=== PATIENT | male | born 1990 | race African-American/Black ===

== ENCOUNTER 2018-08-18 06:21 | Emergency (ER) | payer SELFPAY ==
--- NOTE | 2018-08-18 07:35 | PDOC ---
History of Present Illness - General Stated Complaint: BACK PAIN Time Seen by Provider: 08/18/18 07:30 History Source: Patient - History of Present Illness Timing/Duration: other Associated Symptoms: denies: fever/chills, nausea/vomiting Past History - Past Medical History Allergies/Adverse Reactions: Allergies Allergy/AdvReac Type Severity Reaction Status Date / Time No Known Allergies Allergy Verified 08/18/18 07:30 Home Medications: Ambulatory Orders NK [No Known Home Medication] 08/18/18 Review of Systems - Review of Systems Constitutional: No: Chills, Fever ABD/GI: No: Nausea, Vomiting, Abdominal cramping : No: Burning, Hematuria Musculoskeletal: Yes: Back Pain Integumentary: Yes: Rash. No: Pruritus Neurological: No: Numbness, Tingling, Weakness *Physical Exam - Physical Exam General Appearance: Yes: Appropriately Dressed. No: Apparent Distress HEENT: positive: Normal Voice Neck: positive: Supple Gastrointestinal/Abdominal: positive: Soft. negative: Tender Musculoskeletal: negative: CVA Tenderness, Vertebral Tenderness Extremity: positive: Normal Inspection Integumentary: positive: Dry, Warm, Rash (1x1 cm induration to r axilla, no fluctuance/erythema) Neurologic: positive: Fully Oriented, Alert, Normal Mood/Affect Medical Decision Making - Medical Decision Making 08/18/18 07:30 28 yo M, no sig hx, here w/ multiple complaints. Pt states for the past several months has been getting "pimples" mostly to upper extremity b/l. Currently has a lesion under his R axilla. No prior medical evaluation. Also reports intermittent lower back pain x 3 months. States he started going to the gym ~4 months ago. No pain currently. Does not take anything for pain See exam ?early abscess to r axilla ~1x1 cm induration w/ no fluctuance or erythema No I&D needed today -dc w/ warm compresses Intermittent LBP x 3 months Started working out recently No back pain currently No red flags at this time -dc to f/u with PMD *DC/Admit/Observation/Transfer Diagnosis at time of Disposition: Dermatitis Low back pain Qualifiers: Chronicity: acute Back pain laterality: bilateral Sciatica presence: without sciatica Qualified Code(s): M54.5 - Low back pain - Discharge Dispostion Disposition: HOME Condition at time of disposition: Good - Referrals Referrals: Elizabeth Amaro MD [Staff Physician] - - Patient Instructions Printed Discharge Instructions: DI for Low Back Pain Additional Instructions: You have an early abscess to your R armpit that was not ready to be drained today In order to prevent worsening of symptoms, apply warm/hot compress 4-5 times a day until swelling resolves If symptoms worsen, return to the ER Please follow up with Dr Amaro of dermatology for further evaluation of your skin lesions Your back pain is most likely muscular, take motrin or tylenol for pain as needed Please follow up with your PMD - Post Discharge Activity
[2018-08-18 07:54] VITALS: BP 126/70; PULSE 61; TEMP 98.2; BMI 33.5
== END 2018-08-18 07:41 | disposition home or self-care (01) ==
LOC: JER 06:21
DX: M54.5 Low back pain (principal); L30.9 Dermatitis, unspecified
CPT/HCPCS: 99281-25